=== PATIENT | female | born 1990 | race Two or more races ===

== ENCOUNTER 2019-01-27 07:32 | Emergency (ER) | payer OTHER ==
[~2019-01-27] VITALS: Ht 154.9 cm; Wt 54.4 kg
[~2019-01-27 07:32] MED LIST: OMEPRAZOLE10 M1 ORAL
[2019-01-27] MEDS ORDERED: Isovue-300 100ml vial INJ PRN (07:45)
[2019-01-27] MEDS ORDERED: Morphine Sulfate 2mg/ml Inj(IV/IM USE ONLY) IVP ONE (07:45)
[2019-01-27] MEDS ORDERED: Neosporin Oint Ud Pkt TOPIC ONE (07:45)
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
[2019-01-27 08:00] LABS: EOSINOPHILS % (AUTO) 2.2 % (0.0-3.0); HEMATOCRIT 43.5 % (37.0-47.0); HEMOGLOBIN 14.5 G/DL (12.0-16.0); LYMPHOCYTES % (AUTO) 32.2 % (20.0-45.0); MEAN CORPUSCULAR VOLUME 87 FL (80-99); MONOCYTES % (AUTO) 8.1 % (1.0-10.0); NEUTROPHILS % (AUTO) 56.5 % (45.0-75.0); PLATELET COUNT 254 K/UL (150-450); RED BLOOD COUNT 5.01 M/UL (4.20-5.40); RED CELL DISTRIBUTION WIDTH 11.8 % (11.6-14.8); WHITE BLOOD COUNT 5.6 K/UL (4.8-10.8)
--- NOTE | 2019-01-27 08:00 | NUR ---
ED Nurse Note: Family member at bedside.
[2019-01-27 08:08] LABS: ANION GAP 10 mmol/L (5-15); BLOOD UREA NITROGEN 8 mg/dL (7-18); CALCIUM 8.4 MG/DL (8.5-10.1); CARBON DIOXIDE 22 MMOL/L (21-32); CHLORIDE 106 MMOL/L (98-107); CREATININE 0.7 MG/DL (0.55-1.30); POTASSIUM 4.1 MMOL/L (3.5-5.1); SODIUM 138 MMOL/L (136-145)
[2019-01-27 08:13] LABS: ALANINE AMINOTRANSFERASE 15 U/L (12-78); ALBUMIN 3.8 G/DL (3.4-5.0); ALKALINE PHOSPHATASE 90 U/L (46-116); ASPARTATE AMINO TRANSFERASE 15 U/L (15-37); BILIRUBIN,TOTAL 0.5 MG/DL (0.2-1.0)
[2019-01-27 08:15] LABS: APPEARANCE,URINE CLEAR; BILIRUBIN, URINE NEGATIVE (NEGATIVE); GLUCOSE, URINE (UA) NEGATIVE (NEGATIVE); KETONES,URINE NEGATIVE (NEGATIVE); LEUKOCYTE ESTERASE ,URINE 1+ (NEGATIVE); NITRITE,URINE NEGATIVE (NEGATIVE); PH,URINE 5 (4.5-8.0); PROTEIN,URINE 2+ (NEGATIVE); UROBILINOGEN,URINE NORMAL MG/DL (0.0-1.0)
[2019-01-27 08:18] LABS: COLOR,URINE YELLOW
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
[2019-01-27] MEDS ORDERED: Ketorolac 30mg Inj IV ONE (09:00)
[2019-01-27] MEDS ORDERED: Morphine Sulfate 4mg/ml Inj (IV USE ONLY) IVP ONE (09:00)
--- NOTE | 2019-01-27 09:04 | NUR ---
ED Nurse Note: Patient c/o increased abdominal pain. No redness or bruise on the abdomen noted. Applied Neosporin and dressing over right forearm as ordered. RN cleaned the wound with NS.
[2019-01-27 09:05] VITALS: BP 109/71
--- NOTE | 2019-01-27 09:20 | Diagnostic Imaging Report ---
Indication: Abdominal pain Technique: Continuous helical transaxial imaging of the abdomen and pelvis was obtained from the lung bases to the pubic symphysis during intravenous contrast administration. Coronal 2-D reformats were also obtained. Study obtained in a Siemens sensation [address] Automatic Exposure Control was utilized. Total Dose length Product (DLP): 623.[address] Dose Index Volume (CTDIvol): 12.77 mGy Comparison: None Findings: There is a 3 mm nonobstructive stone within the upper pole calyx of the left kidney. There is no hydronephrosis demonstrated. The uterus is retroverted. An intrauterine device is present. The ovaries are unremarkable. Small bilateral inguinal lymph nodes are present. The appendix is normal. Cholecystectomy noted. The liver and spleen, pancreas and adrenal glands appear normal. Bowel gas pattern is nonobstructive. There is no free fluid. IMPRESSION: Nonobstructive stone in the left kidney. Normal appendix IUD. The CT scanner at [facility] is accredited by the [employer] and the scans are performed using dose optimization techniques as appropriate to a performed exam including Automatic Exposure control.
[2019-01-27] MEDS ORDERED: TYLENOL EXTRA500 MG ORAL (09:30)
[2019-01-27] MEDS ORDERED: Dicyclomine HCl 10mg/5ml oral soln ORAL ONE (09:30)
[2019-01-27] MEDS ORDERED: Lidocaine 2% Visc 15ml soln ORAL ONE (09:30)
[2019-01-27] MEDS ORDERED: RANITIDINE HCL150 MG ORAL (09:30)
[2019-01-27] MEDS ORDERED: LIDODERM700 M1 TOPIC (09:30)
[2019-01-27] MEDS ORDERED: Mylanta II UD 30ml ORAL ONE (09:30)
[2019-01-27] MEDS ORDERED: ROBAXIN-750750 MG PO (09:30)
[2019-01-27 10:02] VITALS: BP 118/71
--- NOTE | 2019-01-27 10:35 | NUR ---
ED Nurse Note: Patient is being discharged from medical care. D/C instruction given to patient. All questions were answered. Patient ambulated out with steady gait with all her belongings, accompanied by family member.
--- NOTE | 2019-01-27 13:12 | Diagnostic Imaging Report ---
Indication: Forearm painPain Findings: 2 views of the right forearm were obtained. No acute fractures, malalignment, erosions or periostitis are identified. . Soft tissues are unremarkable. Impression: Negative for acute injury
== END 2019-01-27 10:35 | disposition home or self-care (01) ==
LOC: EDBD 07:32 → EMR 07:49
DX: R10.9 Unspecified abdominal pain (principal); S60.811A Abrasion of right wrist, initial encounter; V43.52XA Car driver injured in collision with other type car in traffic accident, initial encounter; Y92.488 Other paved roadways as the place of occurrence of the external cause; K21.9 Gastro-esophageal reflux disease without esophagitis; N20.0 Calculus of kidney
CPT/HCPCS: 36415; 73090; 74177; 80053; 81003; 81025; 83690; 84703; 85025; 96374; 96375; 96376; 99284; J1885; J2270; J7040; Q9967; S0028